=== PATIENT | male | born 1940 | race Caucasian/White ===

== ENCOUNTER → 2021-04-08 | Outpatient (CLI) | payer OTHER ==
[~2021-04-08] MED LIST: ASPIR 8181 MG PO; ATENOLOL 25MG T25 MG PO; CARDIZEM CD120 MG PO; CARVEDILOL12.5 MG PO; CINNAMON500 MG PO; CRESTOR40 MG PO; FLOMAX0.4 MG PO; GLIPIZIDE 10 MG10 MG PO; JANUVIA100 MG PO; LANTUS SUBQ; LISINOPRIL20 MG PO; MELATONIN5 M1 PO; METFORMIN HCL500 MG PO; NEXIUM40 MG PO; NIACIN 500 MG500 M1 PO; PLAVIX 75 MG TA75 M1 PO; TRADJENTA5 MG PO; TRICOR145 MG PO; TYLENOL325 MG PO
== END ==
LOC: SJCVCIMAG 06:49
PROVIDERS: ATTEND Nuclear Medicine Nuclear Cardiology
DX: I70.203 Unspecified atherosclerosis of native arteries of extremities, bilateral legs (principal); I77.9 Disorder of arteries and arterioles, unspecified; I25.10 Atherosclerotic heart disease of native coronary artery without angina pectoris; E78.00 Pure hypercholesterolemia, unspecified; I12.9 Hypertensive chronic kidney disease with stage 1 through stage 4 chronic kidney disease, or unspecified chronic kidney disease; E11.22 Type 2 diabetes mellitus with diabetic chronic kidney disease; N18.32 Chronic kidney disease, stage 3b; E78.5 Hyperlipidemia, unspecified; G47.33 Obstructive sleep apnea (adult) (pediatric); Z95.1 Presence of aortocoronary bypass graft; Z98.890 Other specified postprocedural states; Z79.82 Long term (current) use of aspirin; Z79.4 Long term (current) use of insulin; Z79.899 Other long term (current) drug therapy; Z72.89 Other problems related to lifestyle; Z87.891 Personal history of nicotine dependence